=== PATIENT | male | born 1940 | race Two or more races ===

== ENCOUNTER 2019-09-21 16:35 | Inpatient (IN) | payer MEDICAID, MEDICARE ==
[~2019-09-21] VITALS: Ht 167.6 cm; Wt 64.0 kg
--- NOTE | 2019-09-21 16:45 | NUR ---
PATIENT [id number] FRM HOME, SYNCOPAL EPISODE AT HOME WHILE USING COMPUTER. PER REPORT PT VOMITTED BEDFORE PASSING OUT. PATIENT A/O X 4. NO ACUTE DISTRESS. DENIES ANY PAIN OR DISCOMFORT. CONNECTED TO MONITOR. PATIENT CALM AND RELAXED. DR WHITE AT BEDSIDE
--- NOTE | 2019-09-21 16:51 | NUR ---
FSBS TAKEN WITH RESULT OF 93. DR PIÑA AWARE
[2019-09-21] MEDS ORDERED: ASPIRIN 325 MG TABLET ONE (16:55)
[2019-09-21] MEDS ORDERED: IV NS 0.9% 500 ML BAG IV ONE (17:00)
[2019-09-21] MEDS ORDERED: ASPIRIN 325 MG TABLET PO ONE (17:00)
--- NOTE | 2019-09-21 17:07 | NUR ---
PATIENT LEFT UNIT VIA [facility], WHEELED BY [employer].
[2019-09-21 17:08] LABS: BASOPHILS % (AUTO) 0.5 % (0.0-2.0); EOSINOPHILS % (AUTO) 1.9 % (0.0-6.0); HEMATOCRIT 42 % (39-51); HEMOGLOBIN 13.9 g/dL (13.5-17.5); LYMPHOCYTES % (AUTO) 29.8 % (20.0-44.0); MEAN CORPUSCULAR HGB CONC 33 g/dl (31.0-36.0); MEAN CORPUSCULAR VOLUME 92 fL (80-96); MONOCYTES # (AUTO) 0.6 /CMM (0.1-1.30); MONOCYTES % (AUTO) 9.3 % (2.0-12.0); NEUTROPHILS # (AUTO) 3.9 /CMM (1.8-8.9); NEUTROPHILS % (AUTO) 58.5 % (43.0-81.0); PLATELET COUNT (AUTO) 141 /CMM (150-450); RED BLOOD CELL COUNT(AUTO) 4.55 MIL/uL (4.5-6.0); WHITE BLOOD COUNT (AUTO) 6.7 K/uL (4.3-11.0)
[2019-09-21 17:27] LABS: ALANINE AMINOTRANSFERASE 16 U/L (12-78); ALBUMIN 3.4 g/dL (3.4-5.0); ALKALINE PHOSPHATASE 75 U/L (46-116); ASPARTATE AMINOTRANSFERASE 19 U/L (15-37); BILIRUBIN,DIRECT 0.1 mg/dL (0.0-0.2); BILIRUBIN,TOTAL 0.4 mg/dL (0.2-1.0); CALCIUM, SERUM 8.1 mg/dL (8.5-10.1); CARBON DIOXIDE 25 mmol/L (21-32); CHLORIDE 112 mmol/L (98-107); CREATININE 1.4 mg/dL (0.6-1.3); GLUCOSE 96 mg/dL (74-106); POTASSIUM 3.7 mmol/L (3.5-5.1); SODIUM SERUM 142 mmol/L (136-145); TOTAL PROTEIN, SERUM 6.6 g/dL (6.4-8.2); UREA NITROGEN, BLOOD 15 mg/dL (7-18)
--- NOTE | 2019-09-21 18:09 | NUR ---
CALLED FOR TELE BED AND GAVE ADMISSION DATA TO ADMITTING
[2019-09-21] MEDS ORDERED: ACET250T9 PO (18:58)
[2019-09-21] MEDS ORDERED: IV NS 0.9% 1,000 ML IV PRN (19:03)
--- NOTE | 2019-09-21 19:28 | NUR ---
FOLLOWED UP ON A TELE BED. HOUSE SUP WILL CALL WITH A BED
[2019-09-21] MEDS ORDERED: TEMAZEPAM 7.5 MG CAPSULE PO PRN (19:30)
[2019-09-21] MEDS ORDERED: MORPHINE SULFATE INJ 2 MG/ML DISP.SYRIN IV PRN (19:30)
[2019-09-21] MEDS ORDERED: ONDANSETRON HCL/PF 4 MG/2 ML VIAL IVP PRN (19:30)
[2019-09-21] MEDS ORDERED: ACETAMINOPHEN 325 MG TABLET PO PRN (19:30)
[2019-09-21] MEDS ORDERED: HYDROCODONE/APAP 5/325MG 1 EACH TABLET PO PRN (19:30)
--- NOTE | 2019-09-21 20:08 | NUR ---
BED 307-1
--- NOTE | 2019-09-21 20:31 | NUR ---
CALLED IN REPORT TO LESLIE MADDOX
[2019-09-21 20:45] VITALS: BP 145/86
--- NOTE | 2019-09-21 20:45 | NUR ---
transported pt to unit via acls protocol
--- NOTE | 2019-09-21 20:45 | NUR ---
EGG GATHERERCAP COVERER NOTES Received patient from ER via [place] accompanied by 2 ER staff. Admitted to Tele 307-1 under the service of JIM Galaviz. Admission routine done. Transferred patient to bed comfortably, noted with steady gait, able to ambulate without assistance provided. On tele monitor with NSR noted. Patient denies any discomfort at this time. On RA, no respiratory distress noted. Admission orders noted and carried out. Kept on bed clean, dry and comfortable. Family at bedside about to leave. Call light within easy reach. On fall and aspiration precautions. Will continue to monitor accordingly.
--- NOTE | 2019-09-21 20:56 | NUR ---
DAUGHTER: IMELDA [phone]
[2019-09-21 21:33] VITALS: BP 145/86
[2019-09-21 23:40] VITALS: BP 143/71
[2019-09-22] VITALS (8 sets, daily range): BP systolic 141–160; BP diastolic 71–80
[2019-09-22 06:19] LABS: BASOPHILS % (AUTO) 0.2 % (0.0-2.0); EOSINOPHILS % (AUTO) 2.6 % (0.0-6.0); HEMATOCRIT 39 % (39-51); HEMOGLOBIN 12.9 g/dL (13.5-17.5); MEAN CORPUSCULAR HGB CONC 33 g/dl (31.0-36.0); MEAN CORPUSCULAR VOLUME 91 fL (80-96); MONOCYTES # (AUTO) 0.5 /CMM (0.1-1.30); MONOCYTES % (AUTO) 9.2 % (2.0-12.0); PLATELET COUNT (AUTO) 118 /CMM (150-450); RED BLOOD CELL COUNT(AUTO) 4.24 MIL/uL (4.5-6.0); WHITE BLOOD COUNT (AUTO) 5.7 K/uL (4.3-11.0)
[2019-09-22 06:33] LABS: THYROID STIMULATING HORMONE 3.161 uIU/mL (0.358-3.74)
--- NOTE | 2019-09-22 06:40 | NUR ---
PAINT LABORATORY TECHNICIAN CLOSING NOTES Patient asleep, easily awaken. On RA, no SOB/respiratory distress noted. Patient denies discomfort at this time. All nursing needs attended. No new complaints made. R facial asymmetry still noticeable. Kept on bed clean, dry and comfortable. Call light within easy reach. On fall precautions. Endorsed to the next shift.
[2019-09-22 06:43] LABS: CREATININE 1.1 mg/dL (0.6-1.3); PHOSPHORUS 3.5 mg/dL (2.5-4.9); POTASSIUM 3.5 mmol/L (3.5-5.1)
--- NOTE | 2019-09-22 07:38 | NUR ---
SPA COORDINATOR OPENING NOTE Patient received resting in bed. A/O x4. Patient is showing no signs of acute distress or SOB. Tele monitor is NSR. IV is clean and patent. Bed is in lowest position, side rails x3 in upright position. Call light is within reach and patient is aware of how to call for assistance when needed. Will continue to monitor.
[2019-09-22] MEDS ORDERED: TIMO5DRO18 EACHEYE (07:56)
[2019-09-22] MEDS ORDERED: LOSA50TA39 PO (07:56)
[2019-09-22] MEDS ORDERED: BRIN8DRO EACHEYE (07:56)
[2019-09-22] MEDS ORDERED: ATOR10TA PO (07:56)
[2019-09-22] MEDS ORDERED: AMLO5TAB9 PO (07:56)
--- NOTE | 2019-09-22 08:15 | NUR ---
MS/RN S/B Dr Mackey Seen by Dr Mackey - syncopal episode likely vasovagal, no pauses seen on monitor. Discharge planning.
[2019-09-22] MEDS: PANTOPRAZOLE 40 MG TABLET.DR PO SCH (08:49)
[2019-09-22] MEDS: ASPIRIN 81 MG TAB.CHEW PO SCH (08:49)
[2019-09-22] MEDS: AMLODIPINE BESYLATE 5 MG TABLET PO SCH (08:54)
[2019-09-22] MEDS: ATORVASTATIN 10 MG TABLET PO SCH (08:55)
[2019-09-22] MEDS: LOSARTAN POTASSIUM 50 MG TABLET PO SCH (08:55)
[2019-09-22] MEDS ORDERED: BRINZOLAMIDE 1 % OPHTH SOLN 10 ML BOTTLE EACHEYE SCH (09:00)
[2019-09-22] MEDS: BRIMONIDINE TARTRATE OPHT SOLN 5 ML BOTTLE EACHEYE SCH ×3 (09:35→16:52)
[2019-09-22] MEDS: TIMOLOL 0.5% SOLN OPHTH 5 ML BOTTLE EACHEYE SCH ×2 (09:35→16:52)
--- NOTE | 2019-09-22 09:45 | NUR ---
MS/RN Radiologist Call received from [facility] - chest x-ray reveals 4.5cm mass in aortopulmonary window. Differential diagnose to include aneurysm, thoracic aorta and bronchogenic mass.
--- NOTE | 2019-09-22 10:00 | NUR ---
MS/RN S/B Dr Barbosa Seen by Dr Barbosa - orders given for CT scan chest with and without contrast for further evaluation of 4.5cm chest mass. Consent forms signed and placed in front of chart.
[2019-09-22] MEDS ORDERED: IOHEXOL-300 100 ML VIAL IV ONE (11:31)
--- NOTE | 2019-09-22 12:30 | NUR ---
MS/RN CT chest results CT chest resulted - 4cm aortic aneurysm, without evidence of dissection or rupture. Dr Barbosa made aware, instructed to call and notify Dr Mackey.
--- NOTE | 2019-09-22 12:45 | NUR ---
MS/RN Dr Narendra Mendoza called via office and informed of CT chest results, no further or new orders at this time.
[2019-09-22] MEDS: DORZOLAMIDE OPTH 2% 10 ML BOTTLE EACHEYE SCH ×2 (13:27→16:52)
--- NOTE | 2019-09-22 18:03 | NUR ---
MS/RN CLOSING NOTE PATIENT IS RESTING IN BED, A/O X4. FAMILY IS AT THE BEDSIDE. PATIENT DENIES PAIN AT THE MOMENT AND SHOWS NO SIGNS OF ACUTE DISTRESS OR SOB. IV IN LAC 18G IS RUNNING AT 75 ML/HR, SHOWS NO SIGNS ON INFILTRATION. BED IS IN LOWEST POSITION, SIDE RAILS X2 IN UPRIGHT POSITION. CALL LIGHT IS WITHIN REACH AND PATIENT IS AWARE OF HOW TO CALL FOR ASSISTANCE WHEN NEEDED. WILL ENDORSE TO LABORATORY COORDINATOR.
--- NOTE | 2019-09-22 19:40 | NUR ---
MS/RN NOTES RECEIVED PATIENT RESTING COMFORTABLY IN BED, ALERT ORIENTED X4. PATIENT DENIES PAIN AT THIS TIME, NO SIGNS OF ACUTE RESPIRATORY DISTRESS OR SOB NOTED. IV IN LAC 18G IS RUNNING AT 75 ML/HR, SHOWS NO SIGNS ON INFILTRATION. SAFETY MEASURES IN PLACE, BED IN LOWEST LOCKED POSITION, SIDE RAILS X2 IN UPRIGHT POSITION. CALL LIGHT IS WITHIN REACH AND PATIENT IS AWARE OF HOW TO CALL FOR ASSISTANCE WHEN NEEDED. WILL CONTINUE TO MONITOR ACCORDINGLY.
--- NOTE | 2019-09-23 07:09 | NUR ---
MS/RN NOTES PATIENT ABLE TO REST AND SLEPT AT INTERVALS, RESTING COMFORTABLY IN BED,AT THIS TIME, ALERT ORIENTED X4. PATIENT DENIES PAIN AT THIS TIME, NO SIGNS OF ACUTE RESPIRATORY DISTRESS OR SOB NOTED. IV IN LAC 18G IS RUNNING AT 75 ML/HR, SHOWS NO SIGNS ON INFILTRATION. SAFETY MEASURES IN PLACE, BED IN LOWEST LOCKED POSITION, SIDE RAILS X2 IN UPRIGHT POSITION. CALL LIGHT IS WITHIN REACH AND PATIENT IS AWARE OF HOW TO CALL FOR ASSISTANCE WHEN NEEDED. ENDORSED TO AM NURSE FOR CONTINUITY OF CARE.
--- NOTE | 2019-09-23 08:00 | NUR ---
ms rn received on bed, awake,alert,oriented x 4, not in any form of distress, respirations even and unlabored,no sob noted, lungs are clear.abdomen soft,positive bowel sounds,denies pain at this time, all needs attended.
[2019-09-23 08:04] VITALS: BP 157/85
--- NOTE | 2019-09-23 09:00 | NUR ---
ms block breakfast served,due meds given, tolerated well.
[2019-09-23] MEDS: AMLODIPINE BESYLATE 5 MG TABLET PO SCH (09:06)
[2019-09-23] MEDS: PANTOPRAZOLE 40 MG TABLET.DR PO SCH (09:06)
[2019-09-23] MEDS: ATORVASTATIN 10 MG TABLET PO SCH (09:06)
[2019-09-23] MEDS: LOSARTAN POTASSIUM 50 MG TABLET PO SCH (09:07)
[2019-09-23] MEDS: ASPIRIN 81 MG TAB.CHEW PO SCH (09:07)
[2019-09-23] MEDS: BRIMONIDINE TARTRATE OPHT SOLN 5 ML BOTTLE EACHEYE SCH ×2 (09:11→12:39)
[2019-09-23] MEDS: TIMOLOL 0.5% SOLN OPHTH 5 ML BOTTLE EACHEYE SCH (09:11)
[2019-09-23] MEDS: DORZOLAMIDE OPTH 2% 10 ML BOTTLE EACHEYE SCH ×2 (09:12→12:38)
[2019-09-23] MEDS ORDERED: METOPROLOL SUCCINATE 50 MG TAB.SR.24H PO SCH (09:30)
[2019-09-23] MEDS ORDERED: METO100T7 PO (10:38)
--- NOTE | 2019-09-23 11:00 | NUR ---
ms rn was seen by md medeiros/ order to go home today.
[2019-09-23 12:40] VITALS: BP 140/65
--- NOTE | 2019-09-23 14:26 | NUR ---
ms corn grinder instructions given and understood,went home accompanied by ,via [employer].
== END 2019-09-23 14:15 | disposition home or self-care (01) | DRG 422 ==
LOC: ER 16:42 → TELE 20:09 → MED 09-22 08:40
PROVIDERS: ADMIT Nurse Practitioner Acute Care
DX: E86.0 Dehydration (principal); N17.0 Acute kidney failure with tubular necrosis; E78.5 Hyperlipidemia, unspecified; R55 Syncope and collapse; I12.9 Hypertensive chronic kidney disease with stage 1 through stage 4 chronic kidney disease, or unspecified chronic kidney disease; N18.9 Chronic kidney disease, unspecified; N40.0 Benign prostatic hyperplasia without lower urinary tract symptoms; Z86.73 Personal history of transient ischemic attack (TIA), and cerebral infarction without residual deficits; H40.9 Unspecified glaucoma; I70.90 Unspecified atherosclerosis; I71.4 Abdominal aortic aneurysm, without rupture
CPT/HCPCS: 36415; 70450-TC; 71045-TC; 71260-TC; 80048-TC; 80061-TC; 80076-TC; 82962-TC; 83735-TC; 84100-TC; 84439-TC; 84443-TC; 84484-TC; 85025-TC; 85730-TC; 87081-TC; 93307-TC; 93880-TC; 97116-TC; 97530-TC; G0378; J7030; J7040; Q9967

== ENCOUNTER 2022-12-14 14:54 | Inpatient (IN) | payer MEDICARE, MEDICAID ==
[~2022-12-14] VITALS: Ht 165.1 cm; Wt 72.6 kg
[~2022-12-14 14:54] MED LIST: ACET250T9 PO; AMLO-212 PO; ATOR10TA PO; BRIN8DRO2 EACHEYE; LOSA50TA39 PO; METO100T7 PO; TIMO5DRO18 EACHEYE
[2022-12-14] MEDS ORDERED: BRIN8DRO2 EACHEYE (15:58)
[2022-12-14] MEDS ORDERED: TAMS-12 PO (15:58)
[2022-12-14] MEDS ORDERED: LOSA100T31 PO (15:58)
[2022-12-14] MEDS ORDERED: ATOR20TA PO (15:58)
[2022-12-14] MEDS ORDERED: ASPI-1169 PO (15:58)
[2022-12-14] MEDS ORDERED: FINA5TAB11 PO (15:58)
[2022-12-14] MEDS ORDERED: BIMA2.5D5 EACHEYE (15:58)
[2022-12-14 16:06] LABS: EOSINOPHILS % (AUTO) 0.6 % (0.0-6.0); HEMATOCRIT 38 % (39-51); LYMPHOCYTES % (AUTO) 11.9 % (20.0-44.0); MEAN CORPUSCULAR HGB CONC 32 g/dl (31.0-36.0); MEAN CORPUSCULAR VOLUME 92 fL (80-96); MONOCYTES # (AUTO) 0.9 K/uL (0.1-1.30); MONOCYTES % (AUTO) 10.5 % (2.0-12.0); NEUTROPHILS # (AUTO) 6.7 K/uL (1.8-8.9); PLATELET COUNT (AUTO) 154 K/uL (150-450); RED BLOOD CELL COUNT(AUTO) 4.08 MIL/uL (4.5-6.0); WHITE BLOOD COUNT (AUTO) 8.7 K/uL (4.3-11.0)
[2022-12-14 16:25] LABS: CREATINE KINASE, TOTAL 63 U/L (39-308)
[2022-12-14 16:30] LABS: ALANINE AMINOTRANSFERASE 41 U/L (12-78); ALKALINE PHOSPHATASE 88 U/L (46-116); ASPARTATE AMINOTRANSFERASE 46 U/L (15-37); BILIRUBIN,DIRECT 0.3 mg/dL (0.0-0.2); BILIRUBIN,TOTAL 0.8 mg/dL (0.2-1.0); CALCIUM, SERUM 8.4 mg/dL (8.5-10.1); CARBON DIOXIDE 26 mmol/L (21-32); CHLORIDE 106 mmol/L (98-107); CREATININE 1.8 mg/dL (0.6-1.3); GLUCOSE 156 mg/dL (74-106); POTASSIUM 3.9 mmol/L (3.5-5.1); SODIUM SERUM 140 mmol/L (136-145); TOTAL PROTEIN, SERUM 6.7 g/dL (6.4-8.2); UREA NITROGEN, BLOOD 22 mg/dL (7-18)
[2022-12-14] MEDS ORDERED: ASPIRIN 325 MG TABLET PO ONE (17:30)
[2022-12-14] MEDS ORDERED: ASPIRIN 325 MG TABLET ONE (18:02)
[2022-12-14] MEDS ORDERED: ONDANSETRON HCL/PF 4 MG/2 ML VIAL IVP PRN (18:30)
[2022-12-14] MEDS ORDERED: ACETAMINOPHEN 325 MG TABLET PO PRN (18:30)
[2022-12-14] MEDS ORDERED: Z GUARD REMEDY 4 OZ OINT TP PRN (18:30)
[2022-12-14 20:00] VITALS: BP 134/83
[2022-12-14] MEDS: ATORVASTATIN 10 MG TABLET PO SCH (21:04)
[2022-12-14] MEDS: TAMSULOSIN 0.4 MG CAP.SR.24H PO SCH (21:04)
[2022-12-14] MEDS: HEPARIN SODIUM, PORCINE 5000 UNITS/1 ML VIAL SQ SCH (21:05)
[2022-12-14] MEDS ORDERED: BIMATOPROST 2.5 ML DROPS OP SCH (22:00)
[2022-12-15] VITALS (7 sets, daily range): BP systolic 134–159; BP diastolic 78–95
[2022-12-15 06:00] LABS: BASOPHILS % (AUTO) 0.1 % (0.0-2.0); EOSINOPHILS % (AUTO) 1.1 % (0.0-6.0); HEMATOCRIT 39 % (39-51); HEMOGLOBIN 12.6 g/dL (13.5-17.5); LYMPHOCYTES # (AUTO) 1.2 K/uL (0.8-4.8); MEAN CORPUSCULAR HGB CONC 33 g/dl (31.0-36.0); MEAN CORPUSCULAR VOLUME 91 fL (80-96); MONOCYTES # (AUTO) 0.8 K/uL (0.1-1.30); MONOCYTES % (AUTO) 11.3 % (2.0-12.0); NEUTROPHILS # (AUTO) 5.2 K/uL (1.8-8.9); NEUTROPHILS % (AUTO) 70.5 % (43.0-81.0); PLATELET COUNT (AUTO) 140 K/uL (150-450); RED BLOOD CELL COUNT(AUTO) 4.24 MIL/uL (4.5-6.0); WHITE BLOOD COUNT (AUTO) 7.3 K/uL (4.3-11.0)
[2022-12-15 06:30] LABS: CALCIUM, SERUM 8.6 mg/dL (8.5-10.1); CARBON DIOXIDE 26 mmol/L (21-32); CHLORIDE 108 mmol/L (98-107); CREATININE 1.7 mg/dL (0.6-1.3); GLUCOSE 101 mg/dL (74-106); MAGNESIUM 2.3 mg/dL (1.8-2.4); PHOSPHORUS 3.5 mg/dL (2.5-4.9); POTASSIUM 3.6 mmol/L (3.5-5.1); SODIUM SERUM 143 mmol/L (136-145); UREA NITROGEN, BLOOD 23 mg/dL (7-18)
[2022-12-15 06:34] LABS: CHOLESTEROL 94 mg/dL (<200); HDL CHOLESTEROL 50 mg/dL (40-60); LDL 44 mg/dL (0-99); TRIGLYCERIDES 43 mg/dL (30-150)
[2022-12-15] MEDS: PANTOPRAZOLE 40 MG TABLET.DR PO SCH (08:28)
[2022-12-15] MEDS: FINASTERIDE (5 MG) 5 MG TABLET PO SCH (08:28)
[2022-12-15] MEDS: ASPIRIN 81 MG TAB.CHEW PO SCH (08:29)
[2022-12-15] MEDS: HEPARIN SODIUM, PORCINE 5000 UNITS/1 ML VIAL SQ SCH ×2 (08:30→20:22)
[2022-12-15] MEDS ORDERED: ATORVASTATIN 10 MG TABLET PO SCH (09:00)
[2022-12-15] MEDS ORDERED: METOPROLOL SUCCINATE 50 MG TAB.SR.24H PO SCH (09:00)
[2022-12-15] MEDS: TIMOLOL 0.5% SOLN OPHTH 5 ML BOTTLE EACHEYE SCH ×2 (11:30→17:24)
[2022-12-15 17:40] LABS: BILIRUBIN,URINE NEGATIVE (NEGATIVE); COLOR,URINE YELLOW (YELLOW); LEUKOCYTE ESTERASE ,URINE NEGATIVE (NEGATIVE); NITRITE, URINE NEGATIVE (NEGATIVE); PROTEIN,URINE NEGATIVE (NEGATIVE); UGLUCOSE NEGATIVE (NEGATIVE)
[2022-12-15 17:41] LABS: CREATININE, URINE 126.1 MG/DL (30.0-125.0)
[2022-12-15] MEDS ORDERED: IOHEXOL-350 100 ML VIAL IV ONE (18:20)
[2022-12-15] MEDS ORDERED: CT SWABBABLE VALVE TRANS SET 1 EA INFUS.SET MC ONE (18:20)
[2022-12-15] MEDS ORDERED: IV NS 0.9% 250 ML IV ONE (18:20)
[2022-12-15] MEDS ORDERED: IV LR 1000 ML 1,000 ML IV PRN (18:30)
[2022-12-15] MEDS ORDERED: hydrALAZINE HCL IV 20 MG VIAL IV PRN (18:30)
[2022-12-15 18:35] LABS: BACTERIA,URINE None seen /HPF (None Seen); SQUAMOUS EPITHELIAL CELL,UR 0-2 /HPF (None Seen); WBC,URINE 0-2 /HPF (0-3)
[2022-12-15] MEDS: ATORVASTATIN 10 MG TABLET PO SCH (21:12)
[2022-12-15] MEDS: TAMSULOSIN 0.4 MG CAP.SR.24H PO SCH (21:12)
[2022-12-15] MEDS ORDERED: [UNRECOGNIZED DRUG - OTHER] OP SCH (22:00)
[2022-12-16] VITALS: BP 106/55
[2022-12-16 04:00] VITALS: BP 125/73
[2022-12-16 05:47] LABS: BASOPHILS % (AUTO) 0.2 % (0.0-2.0); EOSINOPHILS % (AUTO) 2.1 % (0.0-6.0); HEMATOCRIT 38 % (39-51); HEMOGLOBIN 12.5 g/dL (13.5-17.5); LYMPHOCYTES # (AUTO) 1.5 K/uL (0.8-4.8); LYMPHOCYTES % (AUTO) 22.6 % (20.0-44.0); MEAN CORPUSCULAR HGB CONC 33 g/dl (31.0-36.0); MEAN CORPUSCULAR VOLUME 91 fL (80-96); MONOCYTES # (AUTO) 0.8 K/uL (0.1-1.30); MONOCYTES % (AUTO) 12.1 % (2.0-12.0); NEUTROPHILS # (AUTO) 4.3 K/uL (1.8-8.9); PLATELET COUNT (AUTO) 149 K/uL (150-450); RED BLOOD CELL COUNT(AUTO) 4.21 MIL/uL (4.5-6.0); WHITE BLOOD COUNT (AUTO) 6.8 K/uL (4.3-11.0)
[2022-12-16 06:04] LABS: ALANINE AMINOTRANSFERASE 37 U/L (12-78); ALBUMIN 2.7 g/dL (3.4-5.0); ALKALINE PHOSPHATASE 85 U/L (46-116); ASPARTATE AMINOTRANSFERASE 35 U/L (15-37); BILIRUBIN,TOTAL 0.5 mg/dL (0.2-1.0); CALCIUM, SERUM 8.6 mg/dL (8.5-10.1); CARBON DIOXIDE 24 mmol/L (21-32); CHLORIDE 107 mmol/L (98-107); CREATININE 1.5 mg/dL (0.6-1.3); GLUCOSE 99 mg/dL (74-106); MAGNESIUM 2.2 mg/dL (1.8-2.4); PHOSPHORUS 3.2 mg/dL (2.5-4.9); SODIUM SERUM 140 mmol/L (136-145); TOTAL PROTEIN, SERUM 6.5 g/dL (6.4-8.2); UREA NITROGEN, BLOOD 23 mg/dL (7-18)
[2022-12-16 08:00] VITALS: BP 127/72
[2022-12-16] MEDS: ASPIRIN 81 MG TAB.CHEW PO SCH (08:46)
[2022-12-16] MEDS: FINASTERIDE (5 MG) 5 MG TABLET PO SCH (08:46)
[2022-12-16] MEDS: PANTOPRAZOLE 40 MG TABLET.DR PO SCH (08:46)
[2022-12-16] MEDS: HEPARIN SODIUM, PORCINE 5000 UNITS/1 ML VIAL SQ SCH (08:48)
[2022-12-16] MEDS: BRINZOLAMIDE OP SCH ×2 (08:54→13:19)
[2022-12-16] MEDS: TIMOLOL 0.5% SOLN OPHTH 5 ML BOTTLE EACHEYE SCH (08:54)
[2022-12-16] MEDS: BRIMONIDINE OP SCH ×2 (08:54→13:19)
[2022-12-16] MEDS ORDERED: METOPROLOL SUCCINATE 50 MG TAB.SR.24H PO SCH (09:00)
[2022-12-16 12:00] VITALS: BP 117/63
[2022-12-16] MEDS ORDERED: METO-358 PO (12:36)
[2022-12-19] MEDS ORDERED: METO25TA20 PO (09:43)
== END 2022-12-16 13:40 | disposition home health service (06) | DRG 73 ==
LOC: EDBD 14:54 → ER 16:05 → MERGE 16:05 → TELE 18:15
PROVIDERS: ADMIT Nurse Practitioner Family; ATTEND Nurse Practitioner Family
DX: G90.8 Other disorders of autonomic nervous system (principal); I21.A1 Myocardial infarction type 2; N17.0 Acute kidney failure with tubular necrosis; E44.1 Mild protein-calorie malnutrition; I13.0 Hypertensive heart and chronic kidney disease with heart failure and stage 1 through stage 4 chronic kidney disease, or unspecified chronic kidney disease; G45.9 Transient cerebral ischemic attack, unspecified; I50.32 Chronic diastolic (congestive) heart failure; Z20.822 Contact with and (suspected) exposure to COVID-19; Z86.73 Personal history of transient ischemic attack (TIA), and cerebral infarction without residual deficits; E11.65 Type 2 diabetes mellitus with hyperglycemia; E78.5 Hyperlipidemia, unspecified; R32 Unspecified urinary incontinence; Z79.82 Long term (current) use of aspirin; Z79.899 Other long term (current) drug therapy; D64.9 Anemia, unspecified; E11.22 Type 2 diabetes mellitus with diabetic chronic kidney disease; N18.9 Chronic kidney disease, unspecified; E88.09 Other disorders of plasma-protein metabolism, not elsewhere classified; I71.20 Thoracic aortic aneurysm, without rupture, unspecified; H40.9 Unspecified glaucoma; N40.0 Benign prostatic hyperplasia without lower urinary tract symptoms
CPT/HCPCS: 36415; 71045-TC; 71250-TC; 76770-TC; 80048-TC; 80053-TC; 80061-TC; 80076-TC; 81001; 82550-TC; 82570-TC; 83735-TC; 83880; 84100-TC; 84300-TC; 84484-TC; 85025-TC; 87081-TC; 93307-TC; 93880-TC; C9803; G0378; J1644; J7050; J7120; Q9967

== ENCOUNTER 2022-12-18 11:03 | Inpatient (IN) | payer MEDICARE, MEDICAID ==
[~2022-12-18] VITALS: Ht 160 cm; Wt 63.5 kg
[~2022-12-18 11:03] MED LIST changes: -AMLO-212 PO; +ASPI-1169 PO; -ATOR10TA PO; +ATOR20TA PO; +BIMA2.5D5 EACHEYE; +FINA5TAB11 PO; -LOSA50TA39 PO; +METO-358 PO; -METO100T7 PO; +TAMS-12 PO
--- NOTE | 2022-12-18 11:18 | NUR ---
Brought by maryana to the Emergency Department with a chief complaint of another syncopal event this morning The syncopal event happened while the patient was sitting in the chair, watching TV, per maryana's report
--- NOTE | 2022-12-18 11:25 | NUR ---
BLOOD DRAWN AND SENT TO LAB
[2022-12-18 11:38] LABS: BASOPHILS % (AUTO) 0.3 % (0.0-2.0); EOSINOPHILS % (AUTO) 0.9 % (0.0-6.0); HEMATOCRIT 38 % (39-51); HEMOGLOBIN 12.4 g/dL (13.5-17.5); LYMPHOCYTES # (AUTO) 1.2 K/uL (0.8-4.8); LYMPHOCYTES % (AUTO) 14.5 % (20.0-44.0); MEAN CORPUSCULAR HGB CONC 33 g/dl (31.0-36.0); MEAN CORPUSCULAR VOLUME 90 fL (80-96); MONOCYTES # (AUTO) 0.8 K/uL (0.1-1.30); NEUTROPHILS # (AUTO) 6.1 K/uL (1.8-8.9); NEUTROPHILS % (AUTO) 74.3 % (43.0-81.0); PLATELET COUNT (AUTO) 160 K/uL (150-450); RED BLOOD CELL COUNT(AUTO) 4.18 MIL/uL (4.5-6.0); WHITE BLOOD COUNT (AUTO) 8.2 K/uL (4.3-11.0)
[2022-12-18 11:56] LABS: CALCIUM, SERUM 8.5 mg/dL (8.5-10.1); CARBON DIOXIDE 28 mmol/L (21-32); CHLORIDE 103 mmol/L (98-107); CREATININE 1.6 mg/dL (0.6-1.3); GLUCOSE 112 mg/dL (74-106); POTASSIUM 4.3 mmol/L (3.5-5.1); SODIUM SERUM 137 mmol/L (136-145); UREA NITROGEN, BLOOD 22 mg/dL (7-18)
--- NOTE | 2022-12-18 12:41 | NUR ---
SWAB FOR COVID19 SENT TO LAB
--- NOTE | 2022-12-18 13:34 | NUR ---
MOVE SHEET SUBMITTED.
[2022-12-18] MEDS ORDERED: METO25TA3 PO (14:40)
--- NOTE | 2022-12-18 16:22 | NUR ---
GOT BED 312-1 ADMITTING INFORMED.
[2022-12-18] MEDS ORDERED: ACETAMINOPHEN 325 MG TABLET PO PRN (16:30)
[2022-12-18] MEDS ORDERED: Z GUARD REMEDY 4 OZ OINT TP PRN (16:30)
[2022-12-18] MEDS ORDERED: ONDANSETRON HCL/PF 4 MG/2 ML VIAL IVP PRN (16:30)
[2022-12-18] MEDS ORDERED: BIMATOPROST 2.5 ML BOTTLE EACHEYE SCH (18:00)
--- NOTE | 2022-12-18 18:00 | NUR ---
ESCALATOR MECHANIC NOTE RECEIVED PATIENT FROM ED. PATIENT AWAKE IN BED AO X 4. PT IS ZAMBIAN SPEAKING AND UNDERSTANDS VERY LITTLE PASHTO. PATIENT ABLE TO AMBULATE BUT DUE TO SYNCOPE EPISODES HAS URINAL AT BEDSIDE. PATIENT ON ROOM AIR. SKIN INTACT.PERIPHERAL IV LAC #20. BLIND IN LEFT EYE. SAFETY MEASURES IN PLACE. WILL CONTINUE ADMISSION PROCESS AND MONITOR THROUGHOUT DAY
--- NOTE | 2022-12-18 19:18 | NUR ---
noc rn note called pharmacy to change time of Metoprolol and Timolol that was due 1700. Pharmacists said It's okay to give and just note it.
--- NOTE | 2022-12-18 19:21 | NUR ---
RN CLOSING NOTE PT AWAKE IN BED. STABLE ON ROOM AIR. A/O X 4. GAMBIAN SPEAKING. ON TELE MONITOR SHOWING SR-60. NO RESPIRATORY DISTRESS NOTED. HOB ELEVATED HIGH FOWLERS. IV ACCESS NOTED LAC #20G, PATENT AND INTACT. ALL CARE PROVIDED. SAFETY PRECAUTIONS MAINTAINED: BED LOCKED AND IN LOWEST POSITION, SIDE RAILS UP X3, BED ALARM ON, CALL LIGHT AND TRAY TABLE WITHIN REACH. WILL ENDORSE TO KITCHEN AND BATH DESIGNER NURSE FOR MALISSA.
--- NOTE | 2022-12-18 19:30 | NUR ---
noc rn opening note received patient in bed, a/ox4. no s/s of apparent distress in room air, breathing even and unlabored. denies pain at this time. reading sr in the tele monitor. LAC #20g on saline lock. call light within reach-- reoriented and encouraged with the use of call light. safety in place. will continue with patient's plan of care.
[2022-12-18] MEDS: TIMOLOL 0.5% SOLN OPHTH 5 ML BOTTLE EACHEYE SCH (19:43)
[2022-12-18] MEDS: METOPROLOL TARTRATE 25 MG TABLET PO SCH (19:43)
--- NOTE | 2022-12-18 19:48 | NUR ---
noc rn note scheduled 1700 Timolol and Lopressor administered late at this time. called Pharmacy and said okay to give without changing the time.
[2022-12-18 20:00] VITALS: BP 151/78
[2022-12-18] MEDS ORDERED: ATORVASTATIN 10 MG TABLET PO SCH (22:00)
[2022-12-18] MEDS ORDERED: BIMATOPROST 2.5 ML DROPS OP SCH (22:00)
[2022-12-18] MEDS ORDERED: TAMSULOSIN 0.4 MG CAP.SR.24H PO SCH (22:00)
[2022-12-19] VITALS (7 sets, daily range): BP systolic 125–155; BP diastolic 55–85
--- NOTE | 2022-12-19 06:59 | NUR ---
noc rn closing note patient comfortably sleeping in bed at this time. no s/s of apparent distress in room air. denies pain at this time. reading sb with 48bpm on the tele monitor. no fluids running at this time. all needs attended. all scheduled medications administered. safety in place. will endorse to morning shift rn for continuity of patient care.
[2022-12-19 07:03] LABS: BASOPHILS % (AUTO) 0.1 % (0.0-2.0); EOSINOPHILS % (AUTO) 1.1 % (0.0-6.0); HEMATOCRIT 39 % (39-51); HEMOGLOBIN 12.9 g/dL (13.5-17.5); LYMPHOCYTES # (AUTO) 1.2 K/uL (0.8-4.8); LYMPHOCYTES % (AUTO) 16.9 % (20.0-44.0); MEAN CORPUSCULAR HGB CONC 33 g/dl (31.0-36.0); MEAN CORPUSCULAR VOLUME 90 fL (80-96); MONOCYTES # (AUTO) 0.7 K/uL (0.1-1.30); MONOCYTES % (AUTO) 9.7 % (2.0-12.0); NEUTROPHILS # (AUTO) 5.3 K/uL (1.8-8.9); NEUTROPHILS % (AUTO) 72.2 % (43.0-81.0); PLATELET COUNT (AUTO) 145 K/uL (150-450); WHITE BLOOD COUNT (AUTO) 7.3 K/uL (4.3-11.0)
[2022-12-19] MEDS ORDERED: PANTOPRAZOLE 40 MG TABLET.DR PO SCH (07:30)
--- NOTE | 2022-12-19 07:45 | NUR ---
REFERENCE SERVICES HEAD OPENING NOTE RECEIVED PT AWAKE IN BED. STABLE ON ROOM AIR. A/O X 4. SYRIAN SPEAKING. ON TELE MONITOR SHOWING SR/SB 48 . NO SOB OR DISTRESS NOTED NO C/ O OF PAIN AND DISCOMFORT . IV ACCESS NOTED LAC #20G SL PATENT AND INTACT . SAFETY PRECAUTIONS MAINTAINED: BED LOCKED AND IN LOWEST POSITION, SIDE RAILS UP X3, BED ALARM ON, CALL LIGHT AND TRAY TABLE WITHIN REACH. WILL MONITOR FOR ANY CHANGES
[2022-12-19 07:53] LABS: CALCIUM, SERUM 8.5 mg/dL (8.5-10.1); CARBON DIOXIDE 26 mmol/L (21-32); CHLORIDE 105 mmol/L (98-107); CREATININE 1.5 mg/dL (0.6-1.3); GLUCOSE 97 mg/dL (74-106); PHOSPHORUS 3.2 mg/dL (2.5-4.9); POTASSIUM 3.6 mmol/L (3.5-5.1); SODIUM SERUM 139 mmol/L (136-145); UREA NITROGEN, BLOOD 19 mg/dL (7-18)
[2022-12-19] MEDS ORDERED: FINASTERIDE (5 MG) 5 MG TABLET PO SCH (09:00)
[2022-12-19] MEDS ORDERED: ASPIRIN 81 MG TAB.CHEW PO SCH (09:00)
[2022-12-19] MEDS: METOPROLOL TARTRATE 25 MG TABLET PO SCH (09:03)
[2022-12-19] MEDS: TIMOLOL 0.5% SOLN OPHTH 5 ML BOTTLE EACHEYE SCH (09:04)
[2022-12-19] MEDS ORDERED: IV NS 0.9% 1,000 ML IV ONE (09:30)
[2022-12-19] MEDS ORDERED: METO25TA20 PO (09:43)
--- NOTE | 2022-12-19 14:30 | NUR ---
MACHINE BANDER AND CELLOPHANER NOTES PT AWAKE IN BED. STABLE ON ROOM AIR. A/O X 4. PARAGUAYAN SPEAKING. PATIENT IS WITH ORDER FOR DISCHARGE , ALL DISCHARGE PAPERS WERE PREPARED AND DISCHARGE INSTRUCTIONS PROVIDED REGARDING NEW MEDICATION ORDER , FOLLOW UP WITH PCP AND , WHEN TO CALL 911 IN CASE OF EMERGENCY , ALL PERSONAL BELONGINGS WERE TAKEN AND FORM WAS SIGNED , IV ACCESS WAS REMOVED AND ID BAND , PATIENT DISCHARGE WITH NO SOB OR DISTRESS NOTED NO C/ O OF PAIN AND DISCOMFORT . FAMILY CAME TO PROVIDE TRANSPORTATION , PATIENT LEFT AROUND 1400 WITH FAMILY AMBULATORY
== END 2022-12-19 14:00 | disposition home or self-care (01) | DRG 280 ==
LOC: ER 11:06 → TELE 16:53
PROVIDERS: ADMIT Nurse Practitioner Family; ATTEND Internal Medicine
DX: R00.1 Bradycardia, unspecified (principal); I21.4 Non-ST elevation (NSTEMI) myocardial infarction; N17.0 Acute kidney failure with tubular necrosis; I13.0 Hypertensive heart and chronic kidney disease with heart failure and stage 1 through stage 4 chronic kidney disease, or unspecified chronic kidney disease; I50.32 Chronic diastolic (congestive) heart failure; N18.9 Chronic kidney disease, unspecified; Z20.822 Contact with and (suspected) exposure to COVID-19; I71.9 Aortic aneurysm of unspecified site, without rupture; Z79.82 Long term (current) use of aspirin; E78.5 Hyperlipidemia, unspecified; N40.0 Benign prostatic hyperplasia without lower urinary tract symptoms; D64.9 Anemia, unspecified; Z86.73 Personal history of transient ischemic attack (TIA), and cerebral infarction without residual deficits; H40.9 Unspecified glaucoma; R73.9 Hyperglycemia, unspecified; T44.7X5A Adverse effect of beta-adrenoreceptor antagonists, initial encounter; Y92.009 Unspecified place in unspecified non-institutional (private) residence as the place of occurrence of the external cause; G90.8 Other disorders of autonomic nervous system
CPT/HCPCS: 36415; 71045-TC; 80048-TC; 83735-TC; 84100-TC; 84484-TC; 85025-TC; 87081-TC; C9803; G0378; J7030

== ENCOUNTER 2023-03-11 10:58 | Emergency (ER) | payer MEDICARE, OTHER ==
[~2023-03-11] VITALS: Ht 160 cm; Wt 66.2 kg
[~2023-03-11 10:58] MED LIST changes: -ACET250T9 PO; -METO-358 PO; +METO25TA20 PO
--- NOTE | 2023-03-11 11:00 | NUR ---
BIBS FOR SYNCOPE. A/O X 3, STATELESS SPEAKING, ABLE TO MAKE NEEDS KNOWN, TOLERATING WELL ON ROOM AIR.
--- NOTE | 2023-03-11 11:28 | NUR ---
BLOOD SAMPLES OBTAINED
[2023-03-11 11:32] LABS: BASOPHILS % (AUTO) 0.2 % (0.0-2.0); HEMATOCRIT 39 % (39-51); HEMOGLOBIN 13.1 g/dL (13.5-17.5); LYMPHOCYTES # (AUTO) 1.6 K/uL (0.8-4.8); MEAN CORPUSCULAR HGB CONC 34 g/dl (31.0-36.0); MEAN CORPUSCULAR VOLUME 88 fL (80-96); MONOCYTES # (AUTO) 0.6 K/uL (0.1-1.30); MONOCYTES % (AUTO) 9.2 % (2.0-12.0); NEUTROPHILS # (AUTO) 4.7 K/uL (1.8-8.9); NEUTROPHILS % (AUTO) 66.6 % (43.0-81.0); PLATELET COUNT (AUTO) 140 K/uL (150-450); WHITE BLOOD COUNT (AUTO) 7.1 K/uL (4.3-11.0)
[2023-03-11 12:02] LABS: ALANINE AMINOTRANSFERASE 29 U/L (12-78); ALBUMIN 3.4 g/dL (3.4-5.0); ALKALINE PHOSPHATASE 98 U/L (46-116); ASPARTATE AMINOTRANSFERASE 25 U/L (15-37); BILIRUBIN,DIRECT 0.2 mg/dL (0.0-0.2); BILIRUBIN,TOTAL 0.7 mg/dL (0.2-1.0); CARBON DIOXIDE 27 mmol/L (21-32); CHLORIDE 105 mmol/L (98-107); CREATININE 1.3 mg/dL (0.6-1.3); GLUCOSE 142 mg/dL (74-106); POTASSIUM 3.7 mmol/L (3.5-5.1); SODIUM SERUM 141 mmol/L (136-145); TOTAL PROTEIN, SERUM 7.1 g/dL (6.4-8.2); UREA NITROGEN, BLOOD 14 mg/dL (7-18)
[2023-03-11] MEDS ORDERED: IV NS 0.9% 1,000 ML IV ONE (13:00)
--- NOTE | 2023-03-11 13:10 | NUR ---
Gracy Robertson daughter [phone]
--- NOTE | 2023-03-11 13:12 | NUR ---
Patient refused NS fluids, stated in the past they have caused discomfort and abdominal distension
[2023-03-11 14:10] LABS: BILIRUBIN,URINE NEGATIVE (NEGATIVE); COLOR,URINE YELLOW (YELLOW); LEUKOCYTE ESTERASE ,URINE TRACE (NEGATIVE); NITRITE, URINE NEGATIVE (NEGATIVE); PROTEIN,URINE NEGATIVE (NEGATIVE); UGLUCOSE NEGATIVE (NEGATIVE); UROBILINOGEN,URINE 0.2 EU/dL (0.2)
[2023-03-11 14:15] LABS: BACTERIA,URINE Few /HPF (None Seen); SQUAMOUS EPITHELIAL CELL,UR Rare /HPF (None Seen)
[2023-03-11] MEDS ORDERED: DOXY100C2 PO (14:22)
--- NOTE | 2023-03-11 14:28 | NUR ---
Daughter made aware of discharge
[2023-03-11] MEDS ORDERED: DOXYCYCLINE HYCLATE (100 MG) 100 MG TABLET ONE (16:56)
[2023-03-11] MEDS ORDERED: DOXYCYCLINE HYCLATE (100 MG) 100 MG TABLET PO ONE (17:00)
[2023-03-11 17:01] VITALS: BP 131/70
--- NOTE | 2023-03-11 17:01 | NUR ---
IV removed. Catheter intact and site benign. Pressure and 4x4 applied to site. No bleeding noted.Patient discharged to home in stable condition. Written and verbal after care instructions given. Patient verbalizes understanding of instruction.
== END 2023-03-11 17:01 | disposition home or self-care (01) ==
LOC: ER 11:01
DX: N39.0 Urinary tract infection, site not specified (principal); J32.9 Chronic sinusitis, unspecified; R55 Syncope and collapse; I10 Essential (primary) hypertension; Z79.899 Other long term (current) drug therapy
CPT/HCPCS: 36415; 70450-TC; 70486-TC; 71045-TC; 80048-TC; 80076-TC; 81001; 83605-TC; 84484-TC; 85025-TC; 87040-TC; 87086-TC; J7030